=== PATIENT | male | born 1955 | race Caucasian/White ===

== ENCOUNTER → 2018-01-12 09:15 | Outpatient (CLI) | payer OTHER, MEDICAID, SELFPAY | PROVIDERS: PCP Family Medicine; Visit Provider Physician Assistant | DX: T14.8XXA Other injury of unspecified body region, initial encounter (principal); W57.XXXA Bitten or stung by nonvenomous insect and other nonvenomous arthropods, initial encounter | CPT/HCPCS: 87070; 87075; 87077; 87147; 87186; 87205 ==

== ENCOUNTER 2018-01-14 18:44 | Emergency (ER) | payer OTHER, SELFPAY ==
[2018-01-14 19:42] VITALS: BP 144/88; PULSE 104; RESP 22; O2SAT 98
[2018-01-14 19:44] VITALS: PULSE 104; RESP 22; O2SAT 98; BMI 47.8
[2018-01-14] MEDS: levoFLOXacin 500 MG/100 ML PIGGYBACK 100 MG IV (21:45)
[2018-01-14 21:48] LABS: Add Manual Diff / Slide Review NO; Basophils Percent Auto 0.7 % (0-2); Hematocrit 40.1 % (41-53); Hemoglobin 13.7 g/dL (13.5-17.5); Lymphocytes Percent Auto 16.1 % (25-40); Mean Corpuscular HGB Conc 34.1 % (30-36); Mean Corpuscular Hemoglobin 30.8 PG (26-34); Mean Corpuscular Volume 90.4 fL (80-100); Monocytes Percent Auto 9.7 % (3-14); Neutrophils Absolute Auto 9000 /uL (3000-5900); Neutrophils Percent Auto 72.5 % (50-75); Platelet Count 341 X10^3/uL (150-400); Red Blood Cell Count 4.44 X10^6/uL (4.5-5.9); Red Cell Distribution Width 13.8 % (11.6-14.8); White Blood Cell Count 12.4 X10^3/uL (4.5-11.0)
[2018-01-14 22:00] VITALS: BP 124/68; PULSE 94; RESP 24; O2SAT 98
[2018-01-14 22:00] LABS: BUN Creatinine Ratio 22.9 (6-22); Bilirubin Total 0.8 mg/dL (0.2-1.3); Blood Urea Nitrogen 16 mg/dL (9-20); Calcium 8.9 mg/dL (8.4-10.2); Carbon Dioxide 27 mmol/L (22-32); Chloride 100 mmol/L (98-107); Estimated Glomerular Filt Rate > 60.0 mL/min (>60); Glucose 101 mg/dL (80-110); HEMOLYSIS 34 (0-50); Lactate (Lactic Acid) 1.1 mmol/L (0.7-2.1); Potassium 3.6 mmol/L (3.4-5.1); Sodium 138 mmol/L (137-145)
[2018-01-14 22:37] LABS: Procalcitonin < 0.05 ng/mL (<0.5)
[2018-01-14] MEDS: VANCOMYCIN 2,250 MG in SODIUM CHLORIDE 0.9% 500 ML 250 ML IV (22:44)
[2018-01-14 23:09] VITALS: BP 126/66; PULSE 97; RESP 16; O2SAT 100
[2018-01-15 00:20] VITALS: BP 118/59; PULSE 89; RESP 23; O2SAT 98
--- NOTE | 2018-01-15 07:08 | ED_ITS ---
HPI - Extremity Problem General Chief complaint: Extremity Problem,Nontraumatic Stated complaint: POSSIBLE INFECTION RT LEG-SENT FROM CLINIC Time Seen by Provider: 01/14/18 18:50 Source: patient and family Mode of arrival: ambulatory Limitations: no limitations History of Present Illness HPI Narrative: 62-year-old male presents to the emergency department at the request of the walk-in clinic for further evaluation of the right lower extremity cellulitis. Patient started developing some redness and swelling about 5 days ago in the right lower extremity and sought treatment at the walk- in clinic. He was initially placed on clindamycin and some cultures came back a day later noting the addition of a gram-negative bacteria. The patient was called in a prescription for ciprofloxacin and encouraged to follow up the following day. The patient followed up today in the walk-in clinic and symptoms were a bit worse. Patient denies any systemic findings such as fever, chills nor nausea or vomiting. He feels completely fine. He has only had 3 doses of the new antibiotic. MD Complaint: extremity pain and extremity swelling Onset (ago): day(s) Pain Consistency: constant Location: right Quality: aching Radiation: none Relieving factors: nothing Exacerbating factors: nothing Related Data Previous Rx's Medication Instructions Recorded furosemide 20 mg PO QDAY #90 tab 06/12/17 metoprolol succinate [Toprol XL] 100 mg PO QDAY #90 tab 06/12/17 montelukast 10 mg PO QDAY #90 tab 06/12/17 potassium chloride 10 meq PO BIDCC #180 tab 06/12/17 triamterene-hydrochlorothiazid 1 cap PO QDAY #90 tab 06/12/17 [Dyazide] ciprofloxacin 750 mg tablet 750 mg PO BID #20 tab 01/13/18 cephalexin [Keflex] 500 mg PO QID 10 Days #40 cap 01/15/18 Allergies Allergy/AdvReac Type Severity Reaction Status Date / Time No Known Allergies Allergy Mild Uncoded 01/14/18 19:46 Review of Systems Review of Systems All systems reviewed & are unremarkable except as noted in HPI and below Constitutional Denies chills, Denies fever(s), Denies lethargy and Denies weakness Eyes Denies change in vision, Denies eye discharge, Denies irritation and Denies loss of vision ENT Ears, Nose, Mouth, and Throat: Denies change in voice, Denies neck pain and Denies sore throat Cardiovascular Denies chest pain, Denies irregular heart rhythm, Denies lightheadedness, Denies palpitations, Denies dyspnea, Denies dyspnea on exertion and Denies orthopnea Respiratory Denies cough, Denies dyspnea, Denies dyspnea on exertion and Denies wheezing Gastrointestinal Gastrointestinal: Denies abdominal pain, Denies change in bowel habits, Denies diarrhea, Denies nausea and Denies vomiting Genitourinary Denies hematuria, Denies flank pain, Denies urinary incontinence and Denies urinary urgency Musculoskeletal Denies neck pain Integumentary/Breasts Denies pruritus, Reports erythema, Denies rash, Reports skin swelling, Reports sores and Denies wounds Neurologic Denies confusion, Denies loss of vision and Denies weakness Psychiatric Denies anxiety, Denies confusion, Denies depression, Denies homicidal ideation and Denies suicidal ideation Endocrine Denies palpitations Hematologic/Lymphatic Denies easy bruising Allergic/Immunologic Denies wheezing PFSH Medical History Allergic rhinitis (Chronic Unknown) Sleep apnea (Chronic 2014) Chickenpox (Resolved) Fractures (Resolved Unknown) Measles (Resolved) Mumps (Resolved) Surgical History Hx of tonsillectomy (Resolved Unknown) Family History Father No problems noted. Mother Cancer Social History Smoking Status: Never smoker alcohol intake: current Exam Initial Vital Signs Initial Vital Signs: Vital Signs Pulse Rate 104 H 01/14/18 19:42 Respiratory Rate 22 01/14/18 19:42 Blood Pressure 144/88 H 01/14/18 19:42 Pulse Oximetry 98 01/14/18 19:42 Const General: cooperative and well developed Nutritional Appearance: obese Orientation: alert, awake, oriented x3 and not confused [facility] Head: normocephalic and atraumatic Ears: external ears normal and TM's normal bilaterally Nose: external nose normal and No nasal discharge Face and sinus: sinuses nontender, face symmetric, no sinus tenderness and No dry mucous membranes Mouth: oral mucosae normal and moist mucous membranes Teeth and gingiva: dentition normal Throat: tonsils normal and uvula midline Eyes General: appearance normal, both eyes and all related structures Eyelids: eyelids normal Conjunctivae: conjunctivae normal Sclera: sclerae normal Pupils: PERRL EOM: EOM intact bilaterally Resp Effort & Inspection: normal respiratory effort, able to speak in complete sentences, no respiratory distress and no use of accessory muscles Auscultation: clear to auscultation bilaterally, no rales, no rhonchi and no wheezes Cardio Rate: regular rate Rhythm: regular rhythm Heart Sounds: no click, no gallops, no murmurs and no rubs Pulses: normal peripheral pulses Back/Spine/Pelvis Back: No CVA tenderness Cervical Spine: cervical ROM normal and No pain with cervical ROM Thoracic/Lumbar Spine: thoracic and lumbar spine normal to inspection Skin General: no rashes or lesions noted, No jaundice and No petechiae Wounds: wounds noted Neuro General: alert, oriented x3, gait normal and no focal motor deficits Speech: speech normal Extrem Right lower extremity: edema and lower leg (Patient has posterior right lower extremity cellulitis with some skin breakdown and drainage of serosanguineous fluid. It is not circumferential. Patient has sensation and pulses intact in the lower foot.) Details: erythema Course Orders Ordered: Discontinued Medications Vancomycin HCl 2,250 mg/ (Sodium Chloride) 500 mls @ 250 mls/hr IV NOW ONE Stop: 01/14/18 21:24 Last Infusion: 01/15/18 00:20 Dose: 0 mls/hr Admin: 01/14/18 22:44 Dose: 250 mls/hr Levofloxacin (Levaquin) 500 mg in 100 mls @ 100 mls/hr IV NOW ONE Stop: 01/14/18 22:22 Last Infusion: 01/14/18 23:28 Dose: 0 mls/hr Admin: 01/14/18 21:45 Dose: 100 mls/hr Vital Signs - 8 hr 01/14/18 23:09 01/15/18 00:20 Pulse Rate 97 H 89 Respiratory Rate 16 23 Blood Pressure 118/59 L Blood Pressure [Right Arm] 126/66 H Pulse Oximetry 100 98 MDM - Extremity (Nontraumatic) Lab Data Result diagrams: 01/14/18 21:38 01/14/18 21:38 Lab Results 01/14/18 01/14/18 01/14/18 Range/Units 21:38 21:38 21:38 WBC 12.4 H (4.5-11.0) X10^3/uL RBC 4.44 L (4.5-5.9) X10^6/uL Hgb 13.7 (13.5-17.5) g/dL Hct 40.1 L (41-53) % MCV 90.4 (80-100) fL MCH 30.8 (26-34) PG MCHC 34.1 (30-36) % RDW 13.8 (11.6-14.8) % Plt Count 341 (150-400) X10^3/uL Neut % (Auto) 72.5 (50-75) % Lymph % (Auto) 16.1 L (25-40) % [place] % (Auto) 9.7 (3-14) % Eos % (Auto) 1.0 L (2-4) % Baso % (Auto) 0.7 (0-2) % Neut # (Auto) 9000 H (7625-2858) /uL Sodium 138 (137-145) mmol/L Potassium 3.6 (3.4-5.1) mmol/L Chloride 100 (98-107) mmol/L Carbon Dioxide 27 (22-32) mmol/L BUN 16 (9-20) mg/dL Creatinine 0.70 (0.66-1.25) mg/dL Estimated GFR > 60.0 (>60) mL/min BUN/Creatinine Ratio 22.9 H (6-22) Glucose 101 (80-110) mg/dL Lactate (0.7-2.1) mmol/L Calcium 8.9 (8.4-10.2) mg/dL Total Bilirubin 0.8 (0.2-1.3) mg/dL Procalcitonin < 0.05 (<0.5) ng/mL 01/14/18 Range/Units 21:38 WBC (4.5-11.0) X10^3/uL RBC (4.5-5.9) X10^6/uL Hgb (13.5-17.5) g/dL Hct (41-53) % MCV (80-100) fL MCH (26-34) PG MCHC (30-36) % RDW (11.6-14.8) % Plt Count (150-400) X10^3/uL Neut % (Auto) (50-75) % Lymph % (Auto) (25-40) % [place] % (Auto) (3-14) % Eos % (Auto) (2-4) % Baso % (Auto) (0-2) % Neut # (Auto) (0273-7350) /uL Sodium (137-145) mmol/L Potassium (3.4-5.1) mmol/L Chloride (98-107) mmol/L Carbon Dioxide (22-32) mmol/L BUN (9-20) mg/dL Creatinine (0.66-1.25) mg/dL Estimated GFR (>60) mL/min BUN/Creatinine Ratio (6-22) Glucose (80-110) mg/dL Lactate 1.1 (0.7-2.1) mmol/L Calcium (8.4-10.2) mg/dL Total Bilirubin (0.2-1.3) mg/dL Procalcitonin (<0.5) ng/mL MDM Narrative Medical decision making narrative: Patient is had cellulitis in his right lower extremity for the past week. He has not had appropriate outpatient antibiotic coverage and shows no signs of systemic illness. The patient has an essentially normal lab workup. He very much would like to try outpatient therapy with appropriate antibiotics as opposed to hospitalization at this point. We had a lengthy discussion regarding the risks and benefits of such and support his decision. He will follow up closely and lives in town. He will return for any worsening or persistent symptoms such as fever, shaking chills, increasing pain, vomiting or other concerning symptoms Discharge Plan Departure Patient Disposition: Home, Self-Care Clinical Impression: Cellulitis Discharge Date/Time: 01/15/18 00:21 Interventions: ED Discharge Assessment Last Done: 01/15/18 00:20 Instructions: DI for Cellulitis -- Adult Activity Restrictions/Additional Instructions: *You have been diagnosed with [ right lower extremity cellulitis ] *What to do: *Take medications as directed: Start the Keflex. Continue the Cipro. Do NOT Take any more Clindamycin *Follow up with your primary care provider in 2-3 days *Return to ER if you should have any new, worsening or concerning symptoms such as worsening pain, fever over 101 F, vomiting, shaking chills, or other bothersome symptoms Prescriptions: New cephalexin [Keflex] 500 mg capsule 500 mg PO QID 10 Days Qty: 40 RF: 0 No Action metoprolol succinate [Toprol XL] 100 MG tablet extended release 24 hr 100 mg PO QDAY Qty: 90 RF: 1 triamterene-hydrochlorothiazid [Dyazide] 37.5 MG/25 MG capsule 1 cap PO QDAY Qty: 90 RF: 1 montelukast 10 MG tablet 10 mg PO QDAY Qty: 90 RF: 1 furosemide 20 MG tablet 20 mg PO QDAY Qty: 90 RF: 1 potassium chloride 10 MEQ tablet,ER particles/crystals 10 meq PO BIDCC Qty: 180 RF: 1 ciprofloxacin HCl 750 mg tablet 750 mg PO BID Qty: 20 RF: 0 Referrals: Jaiden Quiroga MD [Physician] - Pratima Peter DO [Primary Care Provider] -
== END 2018-01-15 00:21 | disposition home or self-care (01) ==
PROVIDERS: Emergency Provider Emergency Medicine; PCP Family Medicine
DX: L03.90 Cellulitis, unspecified (principal)
CPT/HCPCS: 80048; 82247; 83605; 84145; 85025; 87040; 96365; 96366; 96368; 99283; 99284; J1956

== ENCOUNTER → 2018-02-16 09:55 | Outpatient (CLI) | payer OTHER, MEDICAID, SELFPAY ==
--- NOTE | 2018-02-16 | OV.WND_ITS ---
Progress Note Details Patient Name: Zenon Garcia Patient Number: [id number] PatientPatientDate: 02/16/2018 Clinician: Nabila Red Physician / Cafe Site Attendant: Jaiden Quiroga SUBJECTIVE Chief Complaint This information was obtained from the patient Had Cellulitis of Right Leg, now resolved. Allergies milk (Severity: Moderate, Reaction: Congestion), grass pollen (Reaction: Itchy, hay fever), dog dander (Reaction: Itchy, hay fever) HPI This information was obtained from the patient 02/16/18. Seen by Dr. Quiroga. 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 He's been treated recently for severe cellulitis of the right lower leg though to possibly be related to the ulcer. The cellulitis has now resolved and he does not report drainage from the ulcer but states it remains painful. He also has severe bilateral chronic venous hypertension but does not currently wear compression stockings. Family History This information was obtained from the patient Cancer - Mother, Diabetes - Paternal Grandparents, Heart Disease - Mother, Father Social History This information was obtained from the patient Never smoker, Caffeine Use - yes, Lives in - in [place], Marital Status - Yes , Occupation - Savings Teller, Self Care and Mobility - yes Past Medical History This information was obtained from the patient Patient has a medical history of: Chronic venous hypertension (bilateral with inflammation) Allergic Rhinitis Sleep Apnea Chickenpox Measles Mumps Surgical History This information was obtained from the patient Patient has a surgical history of: Toncsillectomy (Child) Complaints and Symptoms This information was obtained from the patient Patient complains of: General Notes: I have reviewed and concur with the Review of Systems and Past Family Social History documents completed by the clinician, I have reviewed and concur with the Wound Assessment document completed by the clinician Cardiovascular (Central/Peripheral): Lower extremity (leg) swelling Integumentary (Hair/Skin/Nails): Hemosiderin Staining, Open Sore Prior Wound History: Erythema, Pain Patient denies complaints or symptoms related to: Cardiovascular (Central/Peripheral): Intermittent Claudication, Lower extremity (leg) resting pain Constitutional Symptoms (General Health): Chills, Fever Ear/Nose/Mouth/Throat: Hearing Loss / Aid Hematologic/Lymphatic: Bleeding / Clotting Disorders, Bleeding Tendency Neurological: Loss of Protective Sensation Prior Wound History: Drainage Respiratory: Shortness of Breath General Notes: States not given Additional Information Does patient have a history of Cancer? Yes? Complete all questions.: No Medications aspirin 325 mg tablet oral 1 1 tablet oral twice daily metoprolol tartrate 100 mg tablet oral 1 1 tablet oral once daily furosemide 20 mg tablet oral tablet oral once daily potassium chloride ER 10 mEq capsule,extended release oral 1 1 capsule, extended release oral once daily triamterene 37.5 mg-hydrochlorothiazide 25 mg capsule oral 1 1 capsule oral once daily OBJECTIVE Constitutional Vital signs reviewed and noted. Well developed. Alert. Clean appearing.. Height/ Length: 71 in (180.34 cm), Weight: 339.2 lbs (154.18 kgs), BMI: 47.3, Temperature: 98.8 ?F ( 37.11 ?C), Pulse: 77 bpm, Respiratory Rate: 18 breaths/min, Blood Pressure: 132/88 mmHg, Pulse Oximetry: 96 %. Ears, Nose, Mouth, and Throat: No clinically significant hearing loss on informal examination. Respiratory: No respiratory distress. Even respirations and without use of accessory muscles.. Cardiovascular: 3+ right lower extremity edema. Gastrointestinal (GI): Obese. Nondistended.. Integumentary (Hair, Skin) Mild periwound erythema without warmth. Refer to appropriate clinician wound documentation for this visit; right foot ulcer extends to subcut with base partially covered with pink granulation, remainder fibrin and slough. Wound #1 Right Foot is a chronic Full Thickness Venous Ulcer and has received a status of Not Healed. Initial wound encounter measurements are 0.6cm length x 0.3cm width x 0.1cm depth, with an area of 0.18 sq cm and a volume of 0.018 cubic cm. No tunneling has been noted. No sinus tract has been noted. No undermining has been noted. There was no drainage noted. The patient reports a wound pain of level 0/10. The wound margin is attached. Wound bed has Yes epithelialization, Yes eschar, Yes slough, No granulation. The periwound skin texture is normal. The periwound skin moisture is normal. The periwound skin color is normal. Neurological: Cranial nerves grossly intact with symmetric function normal by informal observation.. ASSESSMENT Active Problems ICD-10 (Encounter Diagnosis) L97.512 - Non-pressure chronic ulcer of other part of right foot with fat layer exposed (Encounter Diagnosis) I87.321 - Chronic venous hypertension (idiopathic) with inflammation of right lower extremity PLAN Wound Orders: Wound #1 Right Foot Cleanser Cleanse Wound: - Distilled water May Shower. - But keep dressing dry use shower boot to keep dressing dry. Use a cast protector. Dressings Primary dressing: - Hydrogel to wound then Nexcare bandage. Change Dressing: - Every other day. Compression/Edema Control Elevation of leg(s) above the level of the heart when sitting. Single Layer Compression Hose - Tetra size G. On in am and take off in pm. Scribing Attestation I attest, as the nurse, that I scribed these orders for the physician. I've reviewed the clinician's documentation and agree with the evaluation and plan as written. Also, the ulcer appears dry so we'll use hydrogel to hydrate the base in order to facilitate debridement at his next visit. He'll also start wearing a Tetra-vocational examiner compression stocking. Electronic Signature(s) Signed By: Date: Jaiden Quiroga MD 02/16/2018 16:47:11 Entered By: Jaiden Quiroga on 02/16/2018 16:40:55
== END ==
PROVIDERS: PCP Family Medicine; Referring Provider Physician Assistant; Visit Provider Internal Medicine
DX: E11.621 Type 2 diabetes mellitus with foot ulcer (principal); L97.512 Non-pressure chronic ulcer of other part of right foot with fat layer exposed; L84 Corns and callosities
CPT/HCPCS: 99213

== ENCOUNTER → 2018-02-24 08:43 | Outpatient (CLI) | payer OTHER, MEDICAID, SELFPAY | PROVIDERS: PCP Family Medicine; Visit Provider Internal Medicine | DX: I87.2 Venous insufficiency (chronic) (peripheral) (principal); L97.512 Non-pressure chronic ulcer of other part of right foot with fat layer exposed | CPT/HCPCS: 11042 ==

== ENCOUNTER → 2018-03-03 08:41 | Outpatient (CLI) | payer OTHER, MEDICAID, SELFPAY ==
--- NOTE | 2018-03-03 | OV.WND_ITS ---
Progress Note Details Patient Name: Zenon Garcia Patient Number: [id number] PatientPatientDate: 03/03/2018 Clinician: Liz Siegel Clinician Cosigner: Billie Geren Physician / Enterprise Cloud Architect: Jaiden Quiroga SUBJECTIVE Chief Complaint This information was obtained from the patient Had Cellulitis of Right Leg, now resolved. Allergies milk (Severity: Moderate, Reaction: Congestion), grass pollen (Reaction: Itchy, hay fever), dog dander (Reaction: Itchy, hay fever) HPI This information was obtained from the patient 03/03/[address] Quiroga. The patient reports decreased pain and drainage associated with the chronic right dorsal foot non-pressure ulcer since his last visit. 02/24/18. Seen by Dr. Quiroga. The patient reports decreased pain and drainage associated with the chronic right dorsal foot non-pressure ulcer since his last visit. 02/16/18. Seen by Dr. Quiroga. 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 He's been treated recently for severe cellulitis of the right lower leg though to possibly be related to the ulcer. The cellulitis has now resolved and he does not report drainage from the ulcer but states it remains painful. He also has severe bilateral chronic venous hypertension but does not currently wear compression stockings. Past Medical History This information was obtained from the patient Patient has a medical history of: Chronic venous hypertension (bilateral with inflammation) Allergic Rhinitis Sleep Apnea Chickenpox Measles Mumps Complaints and Symptoms This information was obtained from the patient Patient complains of: General Notes: I have reviewed and concur with the Review of Systems and Past Family Social History documents completed by the clinician, I have reviewed and concur with the Wound Assessment document completed by the clinician Cardiovascular (Central/Peripheral): Lower extremity (leg) swelling Integumentary (Hair/Skin/Nails): Hemosiderin Staining, Open Sore Prior Wound History: Erythema, Pain Patient denies complaints or symptoms related to: Cardiovascular (Central/Peripheral): Intermittent Claudication, Lower extremity (leg) resting pain Constitutional Symptoms (General Health): Chills, Fever Ear/Nose/Mouth/Throat: Hearing Loss / Aid Hematologic/Lymphatic: Bleeding / Clotting Disorders, Bleeding Tendency Neurological: Loss of Protective Sensation Prior Wound History: Drainage Respiratory: Shortness of Breath Additional Information Does patient have a history of Cancer? Yes? Complete all questions.: No OBJECTIVE Constitutional BP elevated; Afebrile; Alert and in no distress. Well developed. Alert. Clean appearing.. Height/Length: 71 in (180.34 cm), Weight: 339.2 lbs (154.18 kgs), BMI: 47.3, Temperature: 98.1 ?F (36.72 ?C), Pulse: 80 bpm, Respiratory Rate: 17 breaths/min, Blood Pressure: 145/86 mmHg, Pulse Oximetry: 98 %. Cardiovascular: 2+ right lower extremity edema. Gastrointestinal (GI): Obese. Nondistended.. Integumentary (Hair, Skin) No periwound erythema, warmth, or significant drainage. No periwound rashes appreciated or noted otherwise.. Refer to appropriate clinician wound documentation for this visit; right foot ulcer extends to subcut with base partially covered with pink granulation, remainder fibrin and slough. Wound #1 Right Foot is a chronic Full Thickness Venous Ulcer and has received a status of Not Healed. Subsequent wound encounter measurements are 0.5cm length x 0.3cm width x 0.1cm depth, with an area of 0.15 sq cm and a volume of 0.015 cubic cm. No tunneling has been noted. No sinus tract has been noted. No undermining has been noted. There is a scant amount of serous drainage noted which has no odor. The patient reports a wound pain of level 0/10. The wound margin is attached. Wound bed has Yes epithelialization, Yes eschar, Yes slough, Yes bright red, firm granulation. The periwound skin texture is normal. The periwound skin moisture is normal. The periwound skin color is normal. The temperature of the periwound skin is WNL. Periwound skin does not exhibit signs or symptoms of infection. Local Pulse is Doppler. Neurological: Cranial nerves grossly intact with symmetric function normal by informal observation.. ASSESSMENT Active Problems ICD-10 (Encounter Diagnosis) L97.512 - Non-pressure chronic ulcer of other part of right foot with fat layer exposed PROCEDURES Wound #1 Wound #1 (Venous Ulcer) is located on the right foot. A skin/subcutaneous tissue level surgical debridement with a total area debrided of 0.15 sq cm was performed by Jaiden Quiroga MD. Subcutaneous was removed along with devitalized tissue: slough. The following instrument(s) were used: curette. Pain control was achieved using 4% Lido. A time out was conducted prior to the start of the procedure. A minimal amount of bleeding was controlled with n/a. The procedure was tolerated well with a pain level of 0 throughout and a pain level of 0 following the procedure. Post Debridement Measurements: 0.5cm length x 0.3cm width x 0.2cm depth; with an area of 0.15 sq cm and a volume of 0.03 cubic cm; Additional Information Muscle fascia or bone removed and sent to pathology?: No PLAN Wound Orders: Wound #1 Right Foot Anesthetic Topical Xylocaine to wound bed. - In clinic only Cleanser Cleanse Wound: - Distilled water May Shower. - But keep dressing dry use shower boot to keep dressing dry. Use a cast protector. Dressings Primary dressing: - Hydrogel to wound then Nexcare bandage. Change Dressing: - Every other day. Compression/Edema Control Elevation of leg(s) above the level of the heart when sitting. Single Layer Compression Hose - Tetra size G. On in am and take off in pm. Scribing Attestation I attest, as the nurse, that I scribed these orders for the physician. Additional Orders: Follow-Up Appointments Return Appointment: - - One week Other information: If you develop fever, chills, increased pain, drainage, redness or swelling please call our office. If after hours, respond to the ER. Should you experience any significant changes in your wound(s) or have any questions regarding your home care instructions please contact the wound center @ [phone]. If after hours, contact your primary care physician or go to the hospital emergency room. I've reviewed the clinician's documentation and agree with the evaluation and plan as written. In addition, the patient's ulcer demonstrates evidence of non-viable devitalized tissue which will continue to benefit from sharp debridement to help promote granulation and expedite healing. Electronic Signature(s) Signed By: Date: Jaiden Quiroga MD 03/04/2018 09:38:18 Entered By: Jaiden Quiroga on 03/04/2018 09:37:13
== END ==
PROVIDERS: PCP Family Medicine; Visit Provider Internal Medicine
DX: L97.512 Non-pressure chronic ulcer of other part of right foot with fat layer exposed (principal); I87.2 Venous insufficiency (chronic) (peripheral)
CPT/HCPCS: 11042

== ENCOUNTER → 2018-03-10 09:26 | Outpatient (CLI) | payer OTHER, MEDICAID, SELFPAY ==
--- NOTE | 2018-03-10 | OV.WND_ITS ---
Progress Note Details Patient Name: Zenon Garcia Patient Number: [id number] PatientPatientDate: 03/10/2018 Clinician: Kelsy Gonzales Clinician Cosigner: Nabila Red Physician / Managed Care Coordinator: Jaiden Quiroga SUBJECTIVE Chief Complaint This information was obtained from the patient Had Cellulitis of Right Leg, now resolved. Allergies milk (Severity: Moderate, Reaction: Congestion), grass pollen (Reaction: Itchy, hay fever), dog dander (Reaction: Itchy, hay fever) HPI This information was obtained from the patient 03/10/18.Seen by Dr. Quiroga. The patient reports the pain and drainage associated with the chronic right dorsal foot non-pressure ulcer have nearly resolved since his last visit. 03/03/[address] Quiroga. The patient reports decreased pain and drainage associated with the chronic right dorsal foot non-pressure ulcer since his last visit. 02/24/18. Seen by Dr. Quiroga. The patient reports decreased pain and drainage associated with the chronic right dorsal foot non-pressure ulcer since his last visit. 02/16/18. Seen by Dr. Quiroga. 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 He's been treated recently for severe cellulitis of the right lower leg though to possibly be related to the ulcer. The cellulitis has now resolved and he does not report drainage from the ulcer but states it remains painful. He also has severe bilateral chronic venous hypertension but does not currently wear compression stockings. Past Medical History This information was obtained from the patient Patient has a medical history of: Chronic venous hypertension (bilateral with inflammation) Allergic Rhinitis Sleep Apnea Chickenpox Measles Mumps Complaints and Symptoms This information was obtained from the patient Patient complains of: General Notes: I have reviewed and concur with the Review of Systems and Past Family Social History documents completed by the clinician, I have reviewed and concur with the Wound Assessment document completed by the clinician Cardiovascular (Central/Peripheral): Lower extremity (leg) swelling Integumentary (Hair/Skin/Nails): Hemosiderin Staining, Open Sore Prior Wound History: Erythema, Pain Patient denies complaints or symptoms related to: Cardiovascular (Central/Peripheral): Intermittent Claudication, Lower extremity (leg) resting pain Constitutional Symptoms (General Health): Chills, Fever Ear/Nose/Mouth/Throat: Hearing Loss / Aid Hematologic/Lymphatic: Bleeding / Clotting Disorders, Bleeding Tendency Neurological: Loss of Protective Sensation Prior Wound History: Drainage Respiratory: Shortness of Breath Additional Information Does patient have a history of Cancer? Yes? Complete all questions.: No OBJECTIVE Constitutional Vital signs reviewed and noted. Well developed. Alert. Clean appearing.. Height/ Length: 71 in (180.34 cm), Weight: 332 lbs (150.91 kgs), BMI: 46.3, Temperature: 98.8 ?F ( 37.11 ?C), Pulse: 80 bpm, Respiratory Rate: 16 breaths/min, Blood Pressure: 133/86 mmHg, Pulse Oximetry: 95 %. Respiratory: No respiratory distress. Even respirations and without use of accessory muscles.. Gastrointestinal (GI): Obese. Nondistended.. Integumentary (Hair, Skin) No periwound erythema, warmth, or significant drainage. No periwound rashes appreciated or noted otherwise.. Refer to appropriate clinician wound documentation for this visit; right foot ulcer extends to dermis with base partially covered with pink granulation, remainder fibrin and slough. Wound #1 Right Foot is a chronic Full Thickness Venous Ulcer and has received a status of Not Healed. Subsequent wound encounter measurements are 0.2cm length x 0.2cm width x 0.1cm depth, with an area of 0.04 sq cm and a volume of 0.004 cubic cm. No tunneling has been noted. No sinus tract has been noted. No undermining has been noted. There is a scant amount of serous drainage noted which has no odor. The patient reports a wound pain of level 0/10. The wound margin is attached. Wound bed has Yes epithelialization, Yes eschar, Yes slough, Yes bright red, firm granulation. The periwound skin texture is normal. The periwound skin moisture is normal. The periwound skin color is normal. The temperature of the periwound skin is WNL. Periwound skin does not exhibit signs or symptoms of infection. Local Pulse is Doppler. ASSESSMENT Active Problems ICD-10 (Encounter Diagnosis) L97.512 - Non-pressure chronic ulcer of other part of right foot with fat layer exposed PROCEDURES Wound #1 Wound #1 (Venous Ulcer) is located on the right foot. A selective debridement with a total area debrided of 0.04 sq cm was performed by Jaiden Quiroga MD. to remove devitalized tissue: slough. The following instrument(s) were used: curette. Pain control was achieved using 4% Lido. A time out was conducted prior to the start of the procedure. No bleeding occurred. The procedure was tolerated well with a pain level of 0 throughout and a pain level of 0 following the procedure. Post Debridement Measurements: 0.2cm length x 0.2cm width x 0.1cm depth; with an area of 0.04 sq cm and a volume of 0.004 cubic cm; PLAN Wound Orders: Wound #1 Right Foot Anesthetic Topical Xylocaine to wound bed. - In clinic only Cleanser Cleanse Wound: - Distilled water May Shower. - But keep dressing dry use shower boot to keep dressing dry. Use a cast protector. Dressings Primary dressing: - Nexcare Change Dressing: - Every other day. Compression/Edema Control Elevation of leg(s) above the level of the heart when sitting. Single Layer Compression Hose - Tetra size G. On in am and take off in pm. Scribing Attestation I attest, as the nurse, that I scribed these orders for the physician. Additional Orders: Follow-Up Appointments Return Appointment: - - One week Other information: If you develop fever, chills, increased pain, drainage, redness or swelling please call our office. If after hours, respond to the ER. Should you experience any significant changes in your wound(s) or have any questions regarding your home care instructions please contact the wound center @ [phone]. If after hours, contact your primary care physician or go to the hospital emergency room. I've reviewed the clinician's documentation and agree with the evaluation and plan as written. In addition, the patient's ulcer demonstrates evidence of non-viable devitalized tissue which will continue to benefit from sharp debridement to help promote granulation and expedite healing. Electronic Signature(s) Signed By: Date: Jaiden Quiroga MD 03/11/2018 14:31:14 Jaiden Quiroga MD 03/11/2018 14:31:14 Entered By: Jaiden Quiroga on 03/10/2018 10:22:00
== END ==
PROVIDERS: PCP Family Medicine; Visit Provider Internal Medicine
DX: I87.2 Venous insufficiency (chronic) (peripheral) (principal); L97.511 Non-pressure chronic ulcer of other part of right foot limited to breakdown of skin
CPT/HCPCS: 97597

== ENCOUNTER → 2018-03-17 09:04 | Outpatient (CLI) | payer OTHER, MEDICAID, SELFPAY ==
--- NOTE | 2018-03-17 | OV.WND_ITS ---
Progress Note Details Patient Name: Zenon Garcia Patient Number: [id number] PatientPatientDate: 03/17/2018 Clinician: Kelsy Gonzales Physician / Engineering Specialist Technician: Jaiden Quiroga SUBJECTIVE Chief Complaint This information was obtained from the patient Had Cellulitis of Right Leg, now resolved. Allergies milk (Severity: Moderate, Reaction: Congestion), grass pollen (Reaction: Itchy, hay fever), dog dander (Reaction: Itchy, hay fever) HPI This information was obtained from the patient 03/17/18. Seen by Dr. Quiroga. The patient does not report pain or drainage associated with the chronic right dorsal foot non-pressure ulcer since his last visit however he does report a new right lower leg trauma wound that occurred while placing his compression stocking a few days ago. 03/10/18.Seen by Dr. Quiroga. The patient reports the pain and drainage associated with the chronic right dorsal foot non-pressure ulcer have nearly resolved since his last visit. 03/03/[address] Quiroga. The patient reports decreased pain and drainage associated with the chronic right dorsal foot non-pressure ulcer since his last visit. 02/24/18. Seen by Dr. Quiroga. The patient reports decreased pain and drainage associated with the chronic right dorsal foot non-pressure ulcer since his last visit. 02/16/18. Seen by Dr. Quiroga. 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 He's been treated recently for severe cellulitis of the right lower leg though to possibly be related to the ulcer. The cellulitis has now resolved and he does not report drainage from the ulcer but states it remains painful. He also has severe bilateral chronic venous hypertension but does not currently wear compression stockings. Past Medical History This information was obtained from the patient Patient has a medical history of: Chronic venous hypertension (bilateral with inflammation) Allergic Rhinitis Sleep Apnea Chickenpox Measles Mumps Complaints and Symptoms This information was obtained from the patient Patient complains of: General Notes: I have reviewed and concur with the Review of Systems and Past Family Social History documents completed by the clinician, I have reviewed and concur with the Wound Assessment document completed by the clinician Cardiovascular (Central/Peripheral): Lower extremity (leg) swelling Integumentary (Hair/Skin/Nails): Hemosiderin Staining, Open Sore Prior Wound History: Erythema, Pain Patient denies complaints or symptoms related to: Cardiovascular (Central/Peripheral): Intermittent Claudication, Lower extremity (leg) resting pain Constitutional Symptoms (General Health): Chills, Fever Ear/Nose/Mouth/Throat: Hearing Loss / Aid Hematologic/Lymphatic: Bleeding / Clotting Disorders, Bleeding Tendency Neurological: Loss of Protective Sensation Prior Wound History: Drainage Respiratory: Shortness of Breath Additional Information Does patient have a history of Cancer? Yes? Complete all questions.: No OBJECTIVE Constitutional Vital signs reviewed and noted. Well developed. Alert. Clean appearing.. Height/ Length: 71 in (180.34 cm), Weight: 336 lbs (152.73 kgs), BMI: 46.9, Temperature: 98 ?F (36.67 ?C), Pulse: 90 bpm, Respiratory Rate: 16 breaths/min, Blood Pressure: 134/92 mmHg, Pulse Oximetry: 97 %. Ears, Nose, Mouth, and Throat: No clinically significant hearing loss on informal examination. Respiratory: No respiratory distress. Even respirations and without use of accessory muscles.. Cardiovascular: 2+ right lower extremity edema. Gastrointestinal (GI): Obese. Nondistended.. Integumentary (Hair, Skin) No periwound erythema, warmth, or significant drainage. No periwound rashes appreciated or noted otherwise.. Refer to appropriate clinician wound documentation for this visit; right foot ulcer and right lower leg wound extend to dermis with bases covered with pink granulation, remainder fibrin and slough. Wound #1 Right Foot is a chronic Full Thickness Venous Ulcer and has received a status of Not Healed. Subsequent wound encounter measurements are 0.1cm length x 0.1cm width x 0.1cm depth, with an area of 0.01 sq cm and a volume of 0.001 cubic cm. No tunneling has been noted. No sinus tract has been noted. No undermining has been noted. There is a scant amount of serous drainage noted which has no odor. The patient reports a wound pain of level 0/10. The wound margin is attached. Wound bed has Yes epithelialization, No eschar, No slough, No granulation. The periwound skin texture is normal. The periwound skin moisture is normal. The periwound skin color is normal. The temperature of the periwound skin is WNL. Periwound skin does not exhibit signs or symptoms of infection. Local Pulse is Doppler. Wound #2 Right, Anterior Leg is an acute Partial Thickness Venous Ulcer and has received a status of Not Healed. Initial wound encounter measurements are 0.8cm length x 1.5cm width x 0.1cm depth, with an area of 1.2 sq cm and a volume of 0.12 cubic cm. No tunneling has been noted. No sinus tract has been noted. No undermining has been noted. There is a moderate amount of serosanguineous drainage noted which has no odor. The patient reports a wound pain of level 0/10. The wound margin is attached. Wound bed has Yes epithelialization, No eschar, Yes slough, Yes bright red, firm granulation. The periwound skin moisture is normal. The periwound skin exhibited: Edema, Erythema. The temperature of the periwound skin is Warm. Periwound skin presents with s/s of infection. Confirmation Description and Treatment Plan is: Signs and Symptoms Present. Local Pulse is Palpable. Neurological: Cranial nerves grossly intact with symmetric function normal by informal observation.. ASSESSMENT Active Problems ICD-10 (Encounter Diagnosis) L97.512 - Non-pressure chronic ulcer of other part of right foot with fat layer exposed (Encounter Diagnosis) S81.801A - Unspecified open wound, right lower leg, initial encounter PROCEDURES Wound #1 Wound #1 (Venous Ulcer) is located on the right foot. A selective debridement with a total area debrided of 0.04 sq cm was performed by Jaiden Quiroga MD. to remove devitalized tissue: exudate and slough. The following instrument(s) were used: curette. Pain control was achieved using 4% Lido. A time out was conducted prior to the start of the procedure. A minimal amount of bleeding was controlled with n/a. The procedure was tolerated well with a pain level of 0 throughout and a pain level of 0 following the procedure. Post Debridement Measurements: 0.2cm length x 0.2cm width x 0.2cm depth; with an area of 0.04 sq cm and a volume of 0.008 cubic cm; PLAN Wound Orders: Wound #1 Right Foot Anesthetic Topical Xylocaine to wound bed. - In clinic only Cleanser Cleanse Wound: - Distilled water May Shower. - But keep dressing dry use shower boot to keep dressing dry. Use a cast protector. Dressings Primary dressing: - Nexcare Change Dressing: - Every other day. Compression/Edema Control Elevation of leg(s) above the level of the heart when sitting. Single Layer Compression Hose - Tetra size F. On in am and take off in pm. Wound #2 Right, Anterior Leg Anesthetic Topical Xylocaine to wound bed. - In clinic only Cleanser Cleanse Wound: - Distilled water May Shower. - But keep dressing dry use shower boot to keep dressing dry. Use a cast protector. Dressings Primary dressing: - Bordered foam Change Dressing: - Every other day Additional Orders: Follow-Up Appointments Return Appointment: - - Two weeks Other information: If you develop fever, chills, increased pain, drainage, redness or swelling please call our office. If after hours, respond to the ER. Should you experience any significant changes in your wound(s) or have any questions regarding your home care instructions please contact the wound center @ [phone]. If after hours, contact your primary care physician or go to the hospital emergency room. Scribing Attestation I attest, as the nurse, that I scribed these orders for the physician. I've reviewed the clinician's documentation and agree with the evaluation and plan as written. In addition, the patient's ulcer demonstrates evidence of non-viable devitalized tissue which will continue to benefit from sharp debridement to help promote granulation and expedite healing. Electronic Signature(s) Signed By: Date: Jaiden Quiroga MD 03/18/2018 06:31:52 Entered By: Jaiden Quiroga on 03/17/2018 09:33:21
== END ==
PROVIDERS: PCP Family Medicine; Visit Provider Internal Medicine
DX: S81.801A Unspecified open wound, right lower leg, initial encounter (principal); I87.2 Venous insufficiency (chronic) (peripheral); L97.511 Non-pressure chronic ulcer of other part of right foot limited to breakdown of skin
CPT/HCPCS: 97597

== ENCOUNTER → 2018-06-30 08:02 | Outpatient (CLI) | payer OTHER, SELFPAY ==
--- NOTE | 2018-06-30 | DI.US.S_ITS ---
PROCEDURE: US ARTERIAL DUPLEX LE RT INDICATIONS: Non-pressure chronic ulcer of other part of right lower extremity. TECHNIQUE: Color and pulse Doppler interrogation was performed of the right lower extremity arterial system, with image documentation. COMPARISON: None. FINDINGS: Common femoral artery: 122 cm/sec, with triphasic flow. Deep femoral artery: The 50 cm/sec, with biphasic flow. Proximal superficial femoral artery: 100 cm/sec, with triphasic flow. Mid superficial femoral artery: 76 cm/sec, with triphasic flow. Distal superficial femoral artery: 70 cm/sec, with triphasic flow. Popliteal artery: 52 cm/sec, with triphasic flow. Posterior tibial artery: 83 cm/sec, with triphasic flow. Anterior tibial artery/dorsalis pedis: 42 cm/sec, with triphasic flow. [place]-scale imaging description: No hemodynamically significant calcific or soft plaque identified. IMPRESSION: No sign of arterial insufficiency over the right lower extremity arterial vasculature. Dictated by: Vicente Gregory M.D. on 06/30/2018 at 10:48 Approved by: Vicente Gregory M.D. on 06/30/2018 at 10:50
== END ==
PROVIDERS: PCP Internal Medicine; Visit Provider Internal Medicine
DX: L97.812 Non-pressure chronic ulcer of other part of right lower leg with fat layer exposed (principal)
CPT/HCPCS: 93926

== ENCOUNTER → 2018-07-20 07:31 | Outpatient (CLI) | payer OTHER, SELFPAY ==
[2018-07-20 08:02] LABS: Hematocrit 46.4 % (41-53); Mean Corpuscular HGB Conc 34.4 % (30-36); Mean Corpuscular Hemoglobin 30.5 PG (26-34); Mean Corpuscular Volume 88.8 fL (80-100); Platelet Count 235 X10^3/uL (150-400); Red Blood Cell Count 5.23 X10^6/uL (4.5-5.9); Red Cell Distribution Width 13.7 % (11.6-14.8)
[2018-07-20 08:22] LABS: Hemoglobin A1C% w Est Avg Glu 5.9 % (4.0-6.0)
[2018-07-20 08:25] LABS: Alanine Aminotransferase 41 IU/L (21-72); Albumin 4.9 g/dL (3.5-5.0); Albumin Globulin Ratio 1.5 (1.0-2.8); Alkaline Phosphatase 101 U/L (38-126); Aspartate Aminotransferase 33 IU/L (17-59); BUN Creatinine Ratio 32.5 (6-22); Bilirubin Total 0.6 mg/dL (0.2-1.3); Blood Urea Nitrogen 26 mg/dL (9-20); Calcium 9.5 mg/dL (8.4-10.2); Carbon Dioxide 27 mmol/L (22-32); Chloride 96 mmol/L (98-107); Cholesterol 264 mg/dL (140-199); Estimated Glomerular Filt Rate > 60.0 mL/min (>60); Globulin 3.2 g/dL (1.7-4.1); Glucose 149 mg/dL (80-110); HDL Cholesterol 61 mg/dL (40-60); HEMOLYSIS 17 (0-50); LDL Cholesterol Calculated 185 mg/dL (<100); Potassium 3.2 mmol/L (3.4-5.1); Sodium 138 mmol/L (137-145); Total Protein 8.1 g/dL (6.3-8.2); Triglycerides 89 mg/dL (35-150)
== END ==
PROVIDERS: Family Medicine; PCP Internal Medicine; Visit Provider Internal Medicine
DX: E66.01 Morbid (severe) obesity due to excess calories (principal); E03.9 Hypothyroidism, unspecified; E78.5 Hyperlipidemia, unspecified; I10 Essential (primary) hypertension; Z51.81 Encounter for therapeutic drug level monitoring
CPT/HCPCS: 36415; 80053; 80061; 83036; 84443; 85027

== ENCOUNTER → 2018-09-29 18:55 | Outpatient (REF) | payer OTHER, SELFPAY | LOC: LAB 18:55 | PROVIDERS: PCP Internal Medicine; Visit Provider Internal Medicine | DX: L03.115 Cellulitis of right lower limb (principal) | CPT/HCPCS: 87070; 87075; 87077; 87147; 87186; 87205 ==

== ENCOUNTER → 2020-02-22 09:25 | Outpatient (CLI) | payer OTHER, SELFPAY ==
[2020-02-22 11:19] LABS: Hemoglobin A1C% w Est Avg Glu 5.6 % (4.0-6.0)
[2020-02-22 11:27] LABS: Alanine Aminotransferase 24 IU/L (<50); Albumin 4.6 g/dL (3.5-5.0); Albumin Globulin Ratio 1.6 (1.0-2.8); Alkaline Phosphatase 115 U/L (38-126); Aspartate Aminotransferase 31 IU/L (17-59); BUN Creatinine Ratio 27.6 (6-22); Bilirubin Total 0.5 mg/dL (0.2-1.3); Blood Urea Nitrogen 21 mg/dL (9-20); Calcium 9.5 mg/dL (8.4-10.2); Carbon Dioxide 32 mmol/L (22-32); Chloride 102 mmol/L (98-107); Cholesterol 168 mg/dL (140-199); Estimated Glomerular Filt Rate > 60.0 mL/min (>60); Globulin 2.9 g/dL (1.7-4.1); Glucose 90 mg/dL (80-110); HDL Cholesterol 48 mg/dL (40-60); HEMOLYSIS 19 (0-50); LDL Cholesterol Calculated 99 mg/dL (<100); Potassium 4.3 mmol/L (3.4-5.1); Sodium 140 mmol/L (137-145); Total Protein 7.5 g/dL (6.3-8.2); Triglycerides 107 mg/dL (35-150)
[2020-02-22 11:53] LABS: Prostate Specific Antigen Scrn 1.94 ng/mL (0.1-4.0)
== END ==
PROVIDERS: PCP Student in an Organized Health Care Education/Training Program; Referring Provider Student in an Organized Health Care Education/Training Program; Visit Provider Student in an Organized Health Care Education/Training Program
DX: E55.9 Vitamin D deficiency, unspecified (principal); E66.01 Morbid (severe) obesity due to excess calories; E78.6 Lipoprotein deficiency; I10 Essential (primary) hypertension; T50.2X5A Adverse effect of carbonic-anhydrase inhibitors, benzothiadiazides and other diuretics, initial encounter; Z79.899 Other long term (current) drug therapy; R73.9 Hyperglycemia, unspecified; E78.2 Mixed hyperlipidemia; Z12.5 Encounter for screening for malignant neoplasm of prostate
CPT/HCPCS: 80053; 80061; 82306; 83036; G0103

== ENCOUNTER → 2020-09-20 08:17 | Outpatient (CLI) | payer OTHER, SELFPAY ==
[2020-09-20] MEDS: COVID-19 VACC #1, MRNA(MOD) 100 MCG/0.5 ML VIAL IM (08:25)
== END ==
PROVIDERS: PCP Student in an Organized Health Care Education/Training Program; Visit Provider Internal Medicine
DX: Z23 Encounter for immunization (principal)
CPT/HCPCS: 0011A; 91301

== ENCOUNTER → 2020-10-18 07:26 | Outpatient (CLI) | payer OTHER, SELFPAY ==
[2020-10-18] MEDS: COVID-19 VACC #2, MRNA(MOD) 100 MCG/0.5 ML VIAL IM (07:37)
== END ==
PROVIDERS: PCP Student in an Organized Health Care Education/Training Program; Visit Provider Internal Medicine
DX: Z23 Encounter for immunization (principal)
CPT/HCPCS: 0012A; 91301